=== PATIENT | male | born 1945 | race Caucasian/White ===

== ENCOUNTER 2020-02-27 08:59 | Day surgery (SDC) | payer MEDICARE, OTHER ==
[2020-02-23 15:32] VITALS: BMI 23.4
--- OUTSIDE RECORDS SUMMARY | 2020-02-27 09:11 | XMS ---
:[address] [facility] Support Name Relationship Address Phone RE Unavailable Unavailable Unavailable RETIRED Unavailable Unavailable Unavailable [place]ASIA ANNE [address] [facility] [id number] [place] [address] Re-disclosure Warning The records that you are about to access may contain information from federally- assisted alcohol or drug abuse programs. If such information is present, then the following federally mandated warning applies: This information has been disclosed to you from records protected by federal confidentiality rules (42 CFR part 2). The federal rules prohibit you from making any further disclosure of this information unless further disclosure is expressly permitted by the written consent of the person to whom it pertains or as otherwise permitted by 42 CFR part 2. A general authorization for the release of medical or other information is NOT sufficient for this purpose. The Federal rules restrict any use of the information to criminally investigate or prosecute any alcohol or drug abuse patient.The records that you are about to access may contain highly sensitive health information, the redisclosure of which is protected by Article 27-F of the [facility] Public Health law. If you continue you may haveaccess to information: Regarding HIV / AIDS; Provided by facilities licensed or operated by the [facility] Office of Mental Health; or Provided by the [facility] Office for People With Developmental Disabilities. If such information is present, then the following [facility] mandated warning applies: This information has been disclosed to you from confidential records which are protected by state law. State law prohibits you from making any further disclosure of this information without the specific written consent of the person to whom it pertains, or as otherwise permitted by law. Any unauthorized further disclosure in violation of state law may result in a fine or retirement sentence or both. A general authorization for the release of medical or other information is NOT sufficient authorization for further disclosure. Encounters Encounter Providers Location Date Indications Data Source(s ) Outpatient 07/04/2019 [facility] 09:14:00 AM EST DYSPHAGIA - GERD Insurance Providers Payer name Policy type Policy ID Covered Covered constitution party's Policy P shavon / Coverage constitution party ID relationship to Mac Inf ormation type mac [facility] [id number] [employer] (MEDICARE) [facility] [id number] [place] [id number] [employer] MED[employer]ARE [id number] PT [id number] Problems, Conditions, and Diagnoses Code Display Name Description Problem Type Effective Dates Data Source(s) Z87.19 Personal history of Z87.19 Diagnosis 07/04/2019 [place] other diseases of 09:14:00 AM EST [facility] the digestive system R13.10 Dysphagia, R13.10 Diagnosis 07/04/2019 [place] unspecified 09:14:00 AM EST Hospital Results ID Date Data Source [id number] 02/23/2020 01:00:00 PM EDT [facility] Name Value Range Interpretation Description Data Sup porting Code Source(s) Document(s ) SARS [facility] coronavirus 2 RNA This lab was ordered by CARSON HIDALGO and reported by [facility]. Procedure
[2020-02-27] MEDS ORDERED: PROPOFOL 20 ML ONE ×4 (10:04)
[2020-02-27 12:03] VITALS: BP 125/61; PULSE 68; TEMP 98
--- NOTE | 2020-02-29 17:36 | PATH ---
Surgical Pathology Report Patient Name: RAMONA ANNE [facility] Rec. #: [id number] /Age/Gender: 1945 (Age: 74) / M Account: [id number] Location: [facility] Taken: 02/27/2020 Received: 02/27/2020 Reported: 02/29/2020 Physicians: Jose Daniel Fraire M.D. Specimen(s) Received A: SECOND PORTION DUODENUM B: GASTRIC ANTRUM C: GASTRIC BODY POLYP D: POLYP LEFT COLON E: POLYP RIGHT COLON Clinical History History gastric antral vascular ectasia, history of polyps Postoperative diagnosis: Gastritis, gastric polyps, colon polyps, diverticulosis Final Diagnosis A. DUODENUM, SECOND PORTION, BIOPSY: DUODENAL MUCOSA WITH MILD CHRONIC DUODENITIS AND PRESERVED VILLOUS ARCHITECTURE. B. GASTRIC ANTRUM, BIOPSY: GASTRIC ANTRAL MUCOSA WITH MILD CHRONIC GASTRITIS. IMMUNOHISTOCHEMICAL STAIN FOR H. PYLORI IS NEGATIVE. C. GASTRIC BODY POLYP, BIOPSY: FUNDIC GLAND POLYP. IMMUNOHISTOCHEMICAL STAIN FOR H. PYLORI IS NEGATIVE. D. COLON, LEFT, POLYP, BIOPSY: TUBULAR ADENOMA. E. COLON, RIGHT, POLYP, BIOPSY: HYPERPLASTIC POLYP. Positive and negative controls (internal if applicable) show appropriate results. Electronically Signed Delilah Rivas M.D. Gross Description A. Received in formalin, labeled "second portion duodenum" are 3 wynne, irregular portions of soft tissue measuring 0.1-0.3 cm. in greatest dimension. The specimens are submitted in toto in one cassette. B. Received in formalin, labeled "gastric antrum" are 2 wynne, irregular portions of soft tissue measuring 0.3 and 0.4 cm. in greatest dimension. The specimens are submitted in toto in one cassette. C. Received in formalin, labeled "gastric body polyp" is a wynne, irregular portion of soft tissue measuring 0.3 cm. in greatest dimension. The specimen is submitted in toto in one cassette. D. Received in formalin, labeled "polyp left colon" are 2 wynne, irregular portion off soft tissue measuring 0.1-0.7 cm. The specimens are submitted in toto in one cassette. E. Received in formalin, labeled "polyp right colon" are 3 wynne, irregular portions of soft tissue 0.3 and 0.8 cm. in greatest dimension. The specimens are submitted in toto in one cassette. MLSZ/02/28/2020 sananni/02/28/2020
== END 2020-02-27 12:06 | disposition home or self-care (01) ==
LOC: FASU-ENDO 08:59
PROVIDERS: ATTEND Internal Medicine Gastroenterology
PROC: 0DBM8ZX Excision of Descending Colon, Via Natural or Artificial Opening Endoscopic, Diagnostic (ICD-10-PCS; 2020-02-27)
PROC: 0DB98ZX Excision of Duodenum, Via Natural or Artificial Opening Endoscopic, Diagnostic (ICD-10-PCS; 2020-02-27)
PROC: 0DB68ZX Excision of Stomach, Via Natural or Artificial Opening Endoscopic, Diagnostic (ICD-10-PCS; 2020-02-27)
PROC: 0DBK8ZX Excision of Ascending Colon, Via Natural or Artificial Opening Endoscopic, Diagnostic (ICD-10-PCS; principal; 2020-02-27 10:31)
DX: Z86.010 Personal history of colon polyps (principal); D12.4 Benign neoplasm of descending colon; K63.5 Polyp of colon; K57.30 Diverticulosis of large intestine without perforation or abscess without bleeding; K31.7 Polyp of stomach and duodenum; K29.50 Unspecified chronic gastritis without bleeding; K29.80 Duodenitis without bleeding; R10.13 Epigastric pain
CPT/HCPCS: 88305-TC; 88342-TC

== ENCOUNTER 2022-10-22 04:23 | Day surgery (SDC) | payer OTHER, MEDICARE ==
[2022-10-17 10:38] VITALS: BMI 22.2
[~2022-10-22 04:23] MED LIST: ACETAMINOPHEN 325 MG TABLET (FP) PO PRN
[2022-10-22] MEDS ORDERED: LIDOCAINE HCL/PF 1% SDV 5ML VIAL ONE (07:20)
[2022-10-22] MEDS ORDERED: TETRACAINE 0.5% OPHTH SOLN 2 ML BOTTLE ONE (07:20)
[2022-10-22] MEDS ORDERED: POVIDONE-IODINE 5% OPHTHALMIC PREP 30 ML SOLUTION ONE (07:20)
[2022-10-22] MEDS ORDERED: PHENYLEPHRINE/KETOROLAC 4 ML VIAL IO ONE ×2 (07:20→11:10)
[2022-10-22] MEDS ORDERED: TROPICAMIDE 1% 3 ML EYE DROPS ONE (09:11)
[2022-10-22] MEDS ORDERED: KETOROLAC TROMETHAMINE 0.5% EYE DROP 1 DROP DROPS ONE (09:11)
[2022-10-22] MEDS ORDERED: OFLOXACIN 0.3% OPHTHALMIC SOLUTION 5 ML BOTTLE ONE (09:11)
[2022-10-22] MEDS ORDERED: CYCLOPENTOLATE HCL 1% OPHTH SOLN 2 ML BOTTLE ONE (09:11)
[2022-10-22] MEDS ORDERED: PHENYLEPHRINE 2.5% OPTHALMIC DROP 2ML BOTTLE ONE (09:29)
[2022-10-22] MEDS: PHENYLEPHRINE 2.5% OPHTH SOLN 15 ML BOTTLE OP SCH ×3 (09:40→09:50)
[2022-10-22] MEDS: KETOROLAC TROMETHAMINE 0.5% EYE DROP 1 DROP DROPS OP SCH ×3 (09:40→09:50)
[2022-10-22] MEDS: TROPICAMIDE 1% OPHTH SOLN 15 ML BOTTLE OP SCH ×3 (09:40→09:50)
[2022-10-22] MEDS: CYCLOPENTOLATE HCL 1% OPHTH SOLN 2 ML BOTTLE OP SCH ×3 (09:40→09:50)
[2022-10-22] MEDS: OFLOXACIN 0.3% OPHTHALMIC SOLUTION 5 ML BOTTLE OP SCH ×3 (09:40→09:50)
[2022-10-22 09:48] VITALS: RESP 20
[2022-10-22] MEDS ORDERED: MIDAZOLAM HCL 2 MG/2 ML SINGLE DOSE VIAL ONE (10:53)
[2022-10-22] MEDS ORDERED: TETRACAINE 0.5% OPHTH SOLN 2 ML BOTTLE OS ONE (10:55)
[2022-10-22] MEDS ORDERED: POVIDONE-IODINE 5% OPHTHALMIC PREP 30 ML SOLUTION OS ONE (10:57)
[2022-10-22] MEDS ORDERED: BSS (NA/CA/MG/K) BALANCED SALT SOLUTION OPHTH SOLN 15 ML BOTTLE IO ONE (11:03)
[2022-10-22] MEDS ORDERED: LIDOCAINE HCL 1% PRESERVATIVE FREE - 30ML VIAL IO ONE (11:04)
[2022-10-22] MEDS ORDERED: CHONDROITIN SU A/HYALUR SOD 1 KIT IO ONE (11:05)
[2022-10-22] MEDS ORDERED: ACETAMINOPHEN 325 MG TABLET (FP) PO ONE (12:10)
[2022-10-22] MEDS ORDERED: ACETAMINOPHEN 325 MG TABLET (FP) ONE (12:12)
[2022-10-22 12:52] VITALS: BP 138/77; PULSE 52; TEMP 98.2
== END 2022-10-22 12:59 | disposition home or self-care (01) ==
LOC: JASU-SURG 04:23
PROVIDERS: ATTEND Ophthalmology
PROC: 08RK3JZ Replacement of Left Lens with Synthetic Substitute, Percutaneous Approach (ICD-10-PCS; principal; 2022-10-22 11:00)
DX: H26.9 Unspecified cataract (principal)
CPT/HCPCS: J1097; V2632

== ENCOUNTER 2022-11-05 04:15 | Day surgery (SDC) | payer OTHER, MEDICARE ==
[2022-11-03 09:05] VITALS: BMI 22.2
[~2022-11-05 04:15] MED LIST changes: +CYCLOPENTOLATE HCL 1% OPHTH SOLN 2 ML BOTTLE OP SCH; +KETOROLAC TROMETHAMINE 0.5% EYE DROP 1 DROP DROPS OP SCH; +OFLOXACIN 0.3% OPHTHALMIC SOLUTION 5 ML BOTTLE OP SCH; +PHENYLEPHRINE 2.5% OPHTH SOLN 15 ML BOTTLE OP SCH; +TROPICAMIDE 1% OPHTH SOLN 15 ML BOTTLE OP SCH
[2022-11-05 06:23] VITALS: RESP 18
[2022-11-05] MEDS ORDERED: CYCLOPENTOLATE HCL 1% OPHTH SOLN 2 ML BOTTLE ONE (06:34)
[2022-11-05] MEDS ORDERED: KETOROLAC TROMETHAMINE 0.5% EYE DROP 1 DROP DROPS ONE (06:34)
[2022-11-05] MEDS ORDERED: PHENYLEPHRINE 2.5% OPTHALMIC DROP 2ML BOTTLE ONE (06:34)
[2022-11-05] MEDS ORDERED: TROPICAMIDE 1% 3 ML EYE DROPS ONE (06:34)
[2022-11-05] MEDS ORDERED: OFLOXACIN 0.3% OPHTHALMIC SOLUTION 5 ML BOTTLE ONE (06:35)
[2022-11-05] MEDS ORDERED: PHENYLEPHRINE 2.5% OPTHALMIC DROP BOTTLE OD ONE ×3 (06:50→07:10)
[2022-11-05] MEDS ORDERED: KETOROLAC TROMETHAMINE 0.5% EYE DROP 1 DROP DROPS OD ONE ×3 (06:50→07:10)
[2022-11-05] MEDS ORDERED: TROPICAMIDE 1% OPHTH SOLN 15 ML BOTTLE OD ONE ×3 (06:50→07:10)
[2022-11-05] MEDS ORDERED: OFLOXACIN 0.3% OPHTHALMIC SOLUTION 5 ML BOTTLE OD ONE ×3 (06:50→07:10)
[2022-11-05] MEDS ORDERED: CYCLOPENTOLATE HCL 1% OPHTH SOLN 2 ML BOTTLE OD ONE ×3 (06:50→07:10)
[2022-11-05] MEDS ORDERED: VANCOMYCIN 500 MG VIAL (RESTRICTED TO ID ONLY) ONE (07:17)
[2022-11-05] MEDS ORDERED: PHENYLEPHRINE/KETOROLAC 4 ML VIAL IO ONE ×2 (07:17→08:05)
[2022-11-05] MEDS ORDERED: POVIDONE-IODINE 5% OPHTHALMIC PREP 30 ML SOLUTION ONE (07:18)
[2022-11-05] MEDS ORDERED: LIDOCAINE HCL 1% PRESERVATIVE FREE - 30ML VIAL IO ONE (08:05)
[2022-11-05] MEDS ORDERED: CHONDROITIN SU A/HYALUR SOD 1 KIT IO ONE (08:05)
[2022-11-05] MEDS ORDERED: POVIDONE-IODINE 5% OPHTHALMIC PREP 30 ML SOLUTION OD ONE (08:05)
[2022-11-05] MEDS ORDERED: BSS (NA/CA/MG/K) BALANCED SALT SOLUTION OPHTH SOLN 15 ML BOTTLE OD ONE (08:05)
[2022-11-05] MEDS ORDERED: TETRACAINE 0.5% OPHTH SOLN 2 ML BOTTLE OD ONE (08:05)
[2022-11-05 09:33] VITALS: BP 138/75; PULSE 60; TEMP 97
== END 2022-11-05 09:40 | disposition home or self-care (01) ==
LOC: JASU-SURG 04:15
PROVIDERS: ATTEND Ophthalmology
PROC: 08RJ3JZ Replacement of Right Lens with Synthetic Substitute, Percutaneous Approach (ICD-10-PCS; principal; 2022-11-05 08:00)
DX: H26.9 Unspecified cataract (principal)
CPT/HCPCS: J1097; V2632

== ENCOUNTER 2022-11-10 13:23 | Emergency (ER) | payer OTHER, MEDICARE ==
[2022-11-10 13:43] VITALS: BP 190/100; PULSE 88; RESP 18; TEMP 98.5; BMI 22.4
== END 2022-11-10 13:56 | disposition left against medical advice (07) ==
LOC: FER 13:23
DX: H57.11 Ocular pain, right eye (principal); H54.61 Unqualified visual loss, right eye, normal vision left eye; Z53.21 Procedure and treatment not carried out due to patient leaving prior to being seen by health care provider
CPT/HCPCS: 99282-25

== ENCOUNTER 2023-09-21 14:38 | Emergency (ER) | payer OTHER, MEDICARE ==
[2023-09-21 15:15] VITALS: BP 164/82; PULSE 75; RESP 18; TEMP 97.8; BMI 22.5
[2023-09-21] MEDS: ACETAMINOPHEN 500 MG TABLET (FP) PO ONE (15:53)
[2023-09-21] MEDS: DIPHTH,PERTUSS(ACELL),TET 0.5 ML DISP.SYRIN IM ONE (16:10)
== END 2023-09-21 19:00 | disposition home or self-care (01) ==
LOC: FER 14:38
PROC: 3E0234Z Introduction of Serum, Toxoid and Vaccine into Muscle, Percutaneous Approach (ICD-10-PCS; principal; 2023-09-21)
DX: S62.617A Displaced fracture of proximal phalanx of left little finger, initial encounter for closed fracture (principal); W01.0XXA Fall on same level from slipping, tripping and stumbling without subsequent striking against object, initial encounter
CPT/HCPCS: 70450-TC; 71046-TC-FY; 72125-TC; 72170-TC-FY; 73110-TC-LT-FY; 73130-TC-LT-FY; 73562-TC-LT-FY; 73562-TC-RT-FY; 73610-TC-LT-FY; 73630-TC-LT; 90471; 90715; 99284-25